=== PATIENT | male | born 1995 | race Caucasian/White ===

== ENCOUNTER 2020-03-02 13:46 | Observation (INO) ==
[2020-03-02] MEDS ORDERED: NS 0.9% 1000 ml BAG 1,000 ML IV ONE ×2 (13:55→14:09)
[2020-03-02] MEDS ORDERED: Naloxone 0.4 mg VIAL 0.4 mg/ml 1 ml VIAL IV PUSH ONE (13:56)
[2020-03-02] MEDS ORDERED: Iodixanol (CONTRAST) 320 MG/ML 100 ML SDV IV ONE (14:20)
[2020-03-02 14:47] LABS: ABS Basophils 0.1 10^3/ul (0-0.2); ABS Eosinophils 0.1 10^3/ul (0-0.6); ABS Lymphocytes 3.1 10^3/ul (1.0-4.8); ABS Monocytes 0.6 10^3/ul (0-0.8); ABS Neutrophils 4.3 10^3/ul (1.5-7.7); Eosinophil % 1.6 %; Hematocrit 44 % (42-52); Hemoglobin 15.2 g/dL (14.0-18.0); Lymphocyte % 38.4 %; Mean Corpuscular HGB Conc 35 g/dL (31-36); Mean Corpuscular Hemoglobin 29 pg (27-31); Mean Corpuscular Volume 85 fL (80-94); Mean Platelet Volume 8.6 fL (7.4-10.4); Nucleated Red Blood Cells % 0.1; Platelet Count 320 10^3/uL (150-450); Red Cell Distribution Width 14 % (10-15); White Blood Count 8.2 10^3/uL (3.5-10.8)
[2020-03-02 14:59] LABS: Troponin I 0.01 ng/mL (<0.03)
[2020-03-02 15:11] LABS: Activated Partial Thrombo Time 24.6 seconds (26.0-38.0); INR 1.01 (0.82-1.09)
[2020-03-02 15:16] LABS: ALT 41 U/L (7-52); AST 28 U/L (13-39); Albumin 4.2 g/dL (3.2-5.2); Albumin/Globulin Ratio 1.4 (1-3); Alkaline Phosphatase 68 U/L (34-104); Anion Gap 10 mmol/L (2-11); BUN/Creatinine Ratio 16.5 (8-20); Blood Urea Nitrogen 17 mg/dL (6-24); CO2 Carbon Dioxide 26 mmol/L (22-32); Calcium 9.7 mg/dL (8.6-10.3); Chloride 102 mmol/L (101-111); Cholesterol 204 mg/dL; EGFR African American 108.3 (>60); EGFR Non-African American 89.5 (>60); Globulin 3.1 g/dL (2-4); Glucose 150 mg/dL (70-100); HDL Cholesterol 24.3 mg/dL; Potassium 3.7 mmol/L (3.5-5.0); Sodium 138 mmol/L (135-145); Total Protein 7.3 g/dL (6.4-8.9); Triglycerides 653 mg/dL
[2020-03-02 15:33] LABS: LDL Cholesterol Direct 90 mg/dL
[2020-03-02] MEDS ORDERED: Ondansetron 4 mg VIAL 2 MG/ML 2 ml VIAL IV PRN (16:08)
[2020-03-02 18:27] LABS: Alcohol, S < 10 mg/dL (<10)
[2020-03-02] MEDS ORDERED: Enoxaparin 40 MG/0.4 ML SYR SUBCUT SCH (20:00)
[2020-03-02] MEDS: NS 0.9% 1000 ml BAG 1,000 ML IV SCH (22:09)
[2020-03-03] MEDS: NS 0.9% 1000 ml BAG 1,000 ML IV SCH ×2 (04:51→10:52)
[2020-03-03 08:21] LABS: Potassium 4.3 mmol/L (3.5-5.0)
[2020-03-03 08:26] LABS: BUN/Creatinine Ratio 14.3 (8-20); EGFR African American 134.7 (>60); EGFR Non-African American 111.3 (>60)
[2020-03-03 08:36] LABS: ABS Eosinophils 0.1 10^3/ul (0-0.6); ABS Lymphocytes 2.9 10^3/ul (1.0-4.8); ABS Monocytes 0.7 10^3/ul (0-0.8); Eosinophil % 1.6 %; Hematocrit 44 % (42-52); Hemoglobin 14.9 g/dL (14.0-18.0); Lymphocyte % 36.8 %; Mean Corpuscular HGB Conc 34 g/dL (31-36); Mean Corpuscular Hemoglobin 29 pg (27-31); Mean Corpuscular Volume 87 fL (80-94); Mean Platelet Volume 8.5 fL (7.4-10.4); Nucleated Red Blood Cells % 0.2; Platelet Count 263 10^3/uL (150-450); Red Blood Count 5.06 10^6 /uL (4.18-5.48); Red Cell Distribution Width 13 % (10-15); White Blood Count 7.8 10^3/uL (3.5-10.8)
[2020-03-03 10:04] LABS: C Reactive Protein 6.61 mg/L (<8.01)
[2020-03-03 10:30] LABS: Urine Appearance Clear; Urine Bilirubin Negative (Negative); Urine Blood Negative (Negative); Urine Color Yellow; Urine Glucose Negative (Negative); Urine Ketones Negative (Negative); Urine Nitrite Negative (Negative); Urine Protein Negative (Negative); Urine Specific Gravity 1.011 (1.010-1.030); Urine Urobilinogen Negative (Negative)
[2020-03-03 11:03] LABS: Urine Benzodiazepine Screen None Detected (None Detect); Urine Cannabinoids Screen Presumptive Positive (None Detect); Urine Opiates Screen None Detected (None Detect)
[2020-03-03 16:22] VITALS: BP 133/65
== END 2020-03-03 17:12 | disposition home or self-care (01) ==
LOC: EDBD → MEDTELE 13:46 → ED 13:46 → MEDTELE 22:05
PROVIDERS: ADMIT Student in an Organized Health Care Education/Training Program; ATTEND Internal Medicine